=== PATIENT | female | born 1995 | race Caucasian/White ===

== ENCOUNTER 2017-10-22 11:00 | Emergency (ER) | payer OTHER ==
[~2017-10-22] VITALS: Ht 160 cm; Wt 90.7 kg
[~2017-10-22 11:00] MED LIST: ALPRAZOLAM0.25 M1 PO; ALPRAZOLAM0.25 MG PO; CRYSELLE-28 TA1 EACH PO; PRILOSEC20 MG PO; SERTRALINE HCL100 MG PO; TOPIRAMATE100 M2 PO; ZOFRAN ODT4 M1 SL
--- NOTE | 2017-10-22 11:16 | ED HEAD/FACIAL INJ COMPLAINT ---
History of Present Illness General Chief Complaint: Facial or Head Injury Stated Complaint: HEAD STRIKE LAST WEEK Source: patient Exam Limitations: no limitations Vital Signs & Intake/Output Vital Signs & Intake/Output Vital Signs Date Time Temp Pulse Resp B/P B/P Pulse O2 O2 Flow FiO2 Mean Ox Delivery Rate 10/22 1249 98.4 67 18 125/69 98 Room Air 10/22 1139 Room Air 10/22 1103 97.8 87 20 132/87 99 Room Air Allergies Coded Allergies: NO KNOWN ALLERGIES (07/23/13) Triage Note: PT SENT TO ED BY HER MD S/P HEADSTRIKE LAST FRIDAY. PT WITH H/O CHRONIC N/V, BUT HAS AND INCREASE IN N/V SINCE HEADSTRIKE. HEAD INJURY. Triage Nurses Notes Reviewed? yes Onset: Gradual Severity: moderate Severity Numbers: 5 Location: frontal : No Patient currently breastfeeds: No HPI: Patient is a 22-year-old female with past medical history of persistent nausea and vomiting and abdominal discomfort which she takes Zofran on a regular basis however patient presents emergency room seen at 6 days ago she actually struck the forehead while opening a car door in a bent position patient denies any loss of consciousness or bleeding from the event however did describe swelling to the forehead region and pain patient has had associated symptoms of photophobia dizziness and persistent nausea. Patient is able tolerate by mouth patient has been taking Tylenol with improvement of her headache however nausea still exists. Patient denies any abdominal pain. Hematuria vaginal bleeding or discharge. Denies any neck pain (Ricky Mcintyre) Reconcile Medications Alprazolam 0.25 MG TABLET 1 TAB PO DAILY PRN ANXIETY (Reported) Esomeprazole Magnesium (Nexium) 20 MG CAPSULE.DR 1 CAP PO DAILY GI (Reported) Metoclopramide HCl (Reglan) 10 MG TABLET 1 TAB PO 4 TIMES/DAY PRN NAUSEA Norgestrel-Ethinyl Estradiol (Cryselle-28 Tablet) 0.3 MG-30 MCG TABLET 1 TAB PO DAILY BC (Reported) Sertraline HCl 100 MG TABLET 1 TAB PO BID MENTAL HEALTH (Reported) Topiramate 100 MG TABLET 1 TAB PO DAILY MENTAL HEALTH (Reported) (Subhash Brizuela DO) Past History Travel History Traveled to [place] past 21 day No Medical History Any Pertinent Medical History? 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 No (Ricky Mcintyre) Review of Systems Review of Systems Constitutional: Reports: no symptoms. EENTM: Reports: see HPI. Respiratory: Reports: no symptoms. Cardiovascular: Reports: no symptoms. GI: Reports: see HPI. Genitourinary: Reports: no symptoms. Musculoskeletal: Reports: no symptoms. Skin: Reports: no symptoms. Neurological/Psychological: Reports: see HPI. Hematologic/Endocrine: Reports: no symptoms. Immunologic/Allergic: Reports: no symptoms. All Other Systems: Reviewed and Negative (Ricky Mcintyre) Physical Exam Physical Exam General Appearance: no apparent distress, obese Head: Mild left scalp point tenderness mild swelling Eyes: Bilateral: normal appearance, PERRL, EOMI. Ears, Nose, Throat: normal pharynx, normal ENT inspection Neck: normal inspection Respiratory: normal breath sounds, chest non-tender, no respiratory distress Back: no vertebral tenderness Extremities: normal inspection, normal range of motion, no edema Psychiatric: awake, alert, oriented x 3 Cranial Nerves: normal hearing, normal speech, PERRL Coordination/Gait: normal finger to nose, normal gait Skin: intact, normal color, warm/dry Comments: CN II-XII INTACT (Ricky Mcintyre) Progress Differential Diagnosis: corneal abrasion, c-spine injury, facial fracture, globe injury, ICH, orbit fracture, skull fracture Plan of Care: Orders Procedure Date/time Status URINE 10/22 1115 Complete Laboratory Tests 10/22/17 1120: Urine Test NEGATIVE Patient has nontender abdomen is requesting eat her lunch, due to history of his nose and exam findings patient has suspicion of concussion CT scan was ordered however my suspicion of ICH or fractures low Nexus criteria 0 CT scan was unremarkable for osseous injury or ICH, discussed results with patient she will follow up with her established urologist and team otr truck driver. Upon discharge patient looks well no apparent distress and had normal steady gait Diagnostic Imaging: Viewed by Me: CT Scan. Radiology Impression: no acute abnormality, no fracture Comments: EXAMINATION: CT HEAD WITHOUT CONTRAST CLINICAL INFORMATION: Head trauma COMPARISON: None TECHNIQUE: Contiguous axial imaging was performed from the skull base to vertex without intravenous administration of contrast. DLP: 621 mGy-cm FINDINGS: There is no evidence of acute intracranial hemorrhage or territorial infarction. No abnormal mass effect or midline shift is seen. [place] to white matter differentiation is well preserved. No extra-axial fluid collections are identified. The ventricles are normal in size. There is no abnormal attenuation within the brain parenchyma. The osseous structures and soft tissues are normal. The mastoid air cells, middle ear cavities and visualized portions of the paranasal sinuses are well aerated. IMPRESSION: No acute intracranial pathology. DICTATED BY: Higinio Brooks MD DATE/TIME DICTATED:10/22/171232 NODE JS DEVELOPER:MARIELA DATE/TIME TRANSCRIBED:10/22/171232 CONFIDENTIAL, DO NOT COPY WITHOUT APPROPRIATE AUTHORIZATION. <Electronically signed in Other Vendor System> SIGNED BY: Higinio Brooks MD 10/22/17 1239 (Ricky Mcintyre) Departure Departure Disposition: HOME OR SELF CARE Condition: Stable Clinical Impression Primary Impression: Concussion Referrals: Rose CORRAL,Jyothi Wallace (PCP/Family) Additional Instructions: As discussed follow-up with your team otr truck driver and your neurologist next week if no better, begin the prescription Reglan for nausea continue Tylenol for pain if symptoms worsen return to emergency room Prescriptions waiting at [facility] Departure Forms: Customer Survey General Discharge Information Prescriptions: Current Visit Scripts Metoclopramide HCl (Reglan) 1 TAB PO 4 TIMES/DAY PRN NAUSEA #15 TAB (Ricky Mcintyre) PA/HEAD OF MAINTENANCE Co-Sign Statement Statement: ED Attending supervision documentation- [] I saw and evaluated the patient. I have also reviewed all the pertinent lab results and diagnostic results. I agree with the findings and the plan of care as documented in the PA's/HEAD OF MAINTENANCE's documentation. [x] I have reviewed the ED Record and agree with the PA's/HEAD OF MAINTENANCE's documentation. [] Additions or exceptions (if any) to the PAs/HEAD OF MAINTENANCE's note and plan are summarized below: [] (Subhash Brizuela DO)
[2017-10-22] MEDS ORDERED: NEXIUM20 M1 PO (11:58)
--- NOTE | 2017-10-22 12:39 | CT SCAN REPORT ---
EXAMINATION: CT HEAD WITHOUT CONTRAST CLINICAL INFORMATION: Head trauma COMPARISON: None TECHNIQUE: Contiguous axial imaging was performed from the skull base to vertex without intravenous administration of contrast. DLP: 621 mGy-cm FINDINGS: There is no evidence of acute intracranial hemorrhage or territorial infarction. No abnormal mass effect or midline shift is seen. [place] to white matter differentiation is well preserved. No extra-axial fluid collections are identified. The ventricles are normal in size. There is no abnormal attenuation within the brain parenchyma. The osseous structures and soft tissues are normal. The mastoid air cells, middle ear cavities and visualized portions of the paranasal sinuses are well aerated. IMPRESSION: No acute intracranial pathology.
[2017-10-22] MEDS ORDERED: REGLAN10 M1 PO (12:43)
[2017-10-22 12:49] VITALS: BP 125/69
== END 2017-10-22 12:51 ==
LOC: ERH 11:00
DX: S06.0X0A Concussion without loss of consciousness, initial encounter (principal); R10.9 Unspecified abdominal pain; R11.0 Nausea; W22.8XXA Striking against or struck by other objects, initial encounter
CPT/HCPCS: 81025